=== PATIENT | male | born 1995 | race Caucasian/White ===

== ENCOUNTER 2022-01-16 13:45 | Emergency (ER) | payer OTHER ==
[~2022-01-16] VITALS: Ht 205.7 cm; Wt 104.5 kg
[2022-01-16 13:46] VITALS: BP 148/85
[2022-01-16] MEDS ORDERED: KETOROLAC TROMETHAMINE 10 MG TAB PO ONE (15:10)
[2022-01-16] MEDS ORDERED: methocarbamoL 750 MG TAB PO ONE (15:10)
[2022-01-16] MEDS ORDERED: METH-1165 PO (16:03)
== END 2022-01-16 16:13 | disposition home or self-care (01) ==
LOC: M ED 13:45
DX: S16.1XXA Strain of muscle, fascia and tendon at neck level, initial encounter (principal); V58.4XXA Person boarding or alighting a pick-up truck or van injured in noncollision transport accident, initial encounter; Y92.89 Other specified places as the place of occurrence of the external cause